=== PATIENT | male | born 1980 | race Caucasian/White ===

== ENCOUNTER 2020-08-23 15:02 | Emergency (ER) | payer BC ==
[~2020-08-23] VITALS: Ht 177.8 cm; Wt 90.6 kg
--- NOTE | 2020-08-23 15:47 | RAD ---
Exam: Chest one view INDICATION: Chest pain TECHNIQUE: Frontal view of the chest Comparisons: None FINDINGS: The cardiomediastinal silhouette and pulmonary vessels are within normal limits. The lung and pleural spaces are clear. IMPRESSION: No acute cardiopulmonary process. Electronically signed by: Vivien Garsia MD (08/23/2020 3:44 PM) [id number]
--- NOTE | 2020-08-23 15:57 | EKG ---
[address] [address] Test Date: 2020-08-23 Test Time: 15:09:41 Pat Name: HERB STALEY Department: Room: Gender: [employer] Instructor: TRACIE : 1980 Requested By: ALEXANDER RODRIGUEZ Order Number: [id number] Reading MD: Shaun Vargas Measurements Intervals [place] Rate: 70 P: 53 DC: 150 QRS: 65 QRSD: 84 T: 36 QT: 386 QTc: 420 Interpretive Statements SINUS RHYTHM NORMAL ECG RI6.02 No previous ECG available for comparison Electronically Signed On 08-24-2020 12:23:18 CDT by Shaun Vargas
[2020-08-23 16:02] LABS: AMPHETAMINE/METHAMPHETAMINE NEG (NEG); BARBITURATES NEG (NEG); BENZODIAZEPINES NEG (NEG); CANNABINOIDS NEG (NEG); COCAINE NEG (NEG); METHADONE NEG (NEG); OPIATES NEG (NEG); PHENCYCLIDINE NEG (NEG)
[2020-08-23 16:25] LABS: MAGNESIUM 2.1 mg/dL (1.8-2.4)
--- NOTE | 2020-08-23 17:11 | PHYS DOC ---
Past History Past Medical History: No Pertinent History (ALEXANDER RODRIGUEZ DO) Additional Past Surgical Histo: finger surgery (ALEXANDER RODRIGUEZ DO) Alcohol Use: Occasionally (ALEXANDER RODRIGUEZ DO) General Adult EDM: Chief Complaint: CHEST PAIN HPI: HPI: 40-year-old male who denies any significant past medical history, takes no r outine medications, presents the ED with complaints of sharp nonradiating constant chest pain on the left side of his chest with some left hand tingling, worse with deep respirations, started while at work today at 2pm. Patient states he tested no negative for COVID 2 weeks ago due to his 9-year-old daughter having a headache at her daycare-daycare refused to accept her back without a covid result. Has a grandfather with coronary artery disease but no family history of coagulopathy, connective tissue disorder, sudden , cardiac arrhythmias or aortic disease. Father from melanoma and mother from lung cancer. Patient denies any cocaine, methamphetamine or alcohol abuse. No prior history of similar symptoms. (ALEXANDER RODRIGUEZ DO) Review of Systems: Review of Systems: Constitutional: Denies fever or chills Eyes: Denies change in visual acuity HENT: Denies nasal congestion or sore throat Respiratory: Denies cough or shortness of breath or hemoptysis Cardiovascular: Denies syncope or edema GI: Denies abdominal pain, nausea, vomiting, bloody stools or diarrhea : Denies dysuria or hematuria Musculoskeletal: Denies back pain or joint pain Integument: Denies rash Neurologic: Denies headache, focal weakness or sensory changes or neck stiffness Endocrine: Denies polyuria or polydipsia Lymphatic: Denies swollen glands or diaphoresis Psychiatric: Denies depression or anxiety (ALEXANDER RODRIGUEZ DO) Heart Score: HEART Score for Chest Pain: HEART Score for Chest Pain Response (Comments) Value History Moderately Suspicious 1 ECG Normal 0 Age < 45 0 Risk Factors 1 or 2 Risk Factors 1 Troponin < Normal Limit 0 Total 2 Risk Factors: Risk Factors: DM, Current or recent (<one month) smoker, HTN, HLP, family history of CAD, obesity. Risk Scores: Score 0 - 3: 2.5% MACE over next 6 weeks - Discharge Home Score 4 - 6: 20.3% MACE over next 6 weeks - Admit for Clinical Observation Score 7 - 10: 72.7% MACE over next 6 weeks - Early Invasive Strategies (ALEXANDER SANCHEZ DO) Allergies: Allergies: Allergies Coded Allergies Type Severity Reaction Last Updated Verified No Known Drug Allergies 08/23/20 No (ALEXANDER RODRIGUEZ DO) Physical Exam: PE: Constitutional: Well developed, well nourished, no acute distress, non-toxic appearance. [] HENT: Normocephalic, atraumatic, bilateral external ears normal, oropharynx moist, no oral exudates, nose normal. [] Eyes: EOMI, conjunctiva normal, no discharge. [] Neck: Normal range of motion, supple, no stridor. [] Cardiovascular:Heart rate regular rhythm, no murmur [] Lungs & Thorax: Bilateral breath sounds clear to auscultation [] Abdomen: Bowel sounds normal, soft, no tenderness, no masses, no pulsatile masses. [] Skin: Warm, dry, no erythema, no rash. [] Back: No tenderness, no Extremities: No tenderness, no cyanosis, no clubbing, ROM intact, no edema. [] Neurologic: Alert and oriented X 3, normal motor function, normal sensory function, no focal deficits noted. [] Psychologic: Affect normal, judgement normal, mood normal. [] (MIGUEL ANGELALEXANDER DO) Current Patient Data: Labs: Laboratory Tests Test 08/23/20 15:29 08/23/20 15:30 Urine Opiates Screen Neg (NEG) Urine Methadone Screen Neg (NEG) Urine Barbiturates Neg (NEG) Urine Phencyclidine Screen Neg (NEG) Urine Amphetamine/Methamphetamine Neg (NEG) Urine Benzodiazepines Screen Neg (NEG) Urine Cocaine Screen Neg (NEG) Urine Cannabinoids Screen Neg (NEG) Urine Ethyl Alcohol Neg (NEG) D-Dimer (Yana) 0.19 mg/L (0.00-0.50) Magnesium Level 2.1 mg/dL (1.8-2.4) Creatine Kinase 222 U/L (39-308) Troponin I Quantitative < 0.017 ng/mL (0-0.055) VW-Jyj-U-Type Natriuretic Peptide 14 pg/mL (0-124) Lipase 132 U/L (73-393) Vital Signs: Vital Signs Date Time Temp Pulse Resp B/P (MAP) Pulse Ox O2 Delivery O2 Flow Rate FiO2 08/23/20 15:47 59 18 134/96 (109) 97 Room Air 08/23/20 15:03 98.6 (ALEXANDER RODRIGUEZ DO) EKG: EKG: Sinus rhythm at 70 bpm, no axis deviation, normal intervals, no T wave inversions, no ST elevations or ST depressions (ALEXANDER RODRIGUEZ DO) Radiology/Procedures: Radiology/Procedures: IMAGING REPORT Signed PATIENT: HERB STALEY ACCOUNT: [id number] : 1980 LOCATION: ER AGE: 40 SEX: M EXAM STATUS: REG ER ORD. PHYSICIAN: ALEXANDER RODRIGUEZ DO REASON: cp PROCEDURE: PORTABLE CHEST 1V Exam: Chest one view INDICATION: Chest pain TECHNIQUE: Frontal view of the chest Comparisons: None FINDINGS: The cardiomediastinal silhouette and pulmonary vessels are within normal limits. The lung and pleural spaces are clear. IMPRESSION: No acute cardiopulmonary process. Electronically signed by: Vivien Dukes MD (08/23/2020 3:44 PM) [id number] DICTATED AND SIGNED BY: VIVIEN DUKES MD DATE: 08/23/20 1544 CC: ALEXANDER RODRIGUEZ DO; MARGIE TAMAYO MD ~ Impressions: PERC rule negative (ALEXANDER RODRIGUEZ DO) Course & Med Decision Making: Course & Med Decision Making Pertinent Labs and Imaging studies reviewed. (See chart for details) Concern for atypical, reproducible, chest pain. Initial troponin and d-dimer are within normal limits. Patient with PERC rule negative. Chest x-ray showed no acute infiltrate. Patient low risk for Mace. Patient with no fever, tachyc ardia and blood pressure within upper limits of normal-normal renal function. Patient is pending repeat troponin. Due to shift change patient was signed out to oncoming physician Dr. Hernadnez. (ALEXANDER RODRIGUEZ DO) Course & Med Decision Making The patient second troponin was normal. There was no change at all. This does not appear to be cardiopulmonary in nature. The patient feels good at this time. He is stable for discharge at this time. (REMEDIOS HERNANDEZ DO) Dragon Disclaimer: Dragon Disclaimer: This electronic medical record was generated, in whole or in part, using a voice recognition dictation system. (ALEXANDER RODRIGUEZ DO) Departure Departure: Impression: Primary Impression: Chest pain Disposition: 01 HOME/RESIDENCE PRIOR TO ADM Condition: STABLE Referrals: MARGIE TAMAYO MD (PCP) Patient Instructions: Chest Pain (Nonspecific), [id number] Justification of Admission: Justification of Admission: Justification of Admission Dx: N/A (ALEXANDER RODRIGUEZ DO) ALEXANDER RODRIGUEZ DO Aug 23, 2020 17:11 REMEDIOS HERNANDEZ DO Aug 23, 2020 22:18
[2020-08-23] MEDS ORDERED: KETOROLAC 15 MG/ML VIAL. IVP ONE (17:15)
[2020-08-23 17:45] LABS: BASO % 0 % (0-3); EOS # 0.2 x10^3/uL (0.0-0.7); EOS % 2 % (0-3); HEMATOCRIT 45.5 % (39.0-53.0); HEMOGLOBIN 15.5 g/dL (13.0-17.5); LYMPH % 25 % (24-48); MEAN CORPUSCULAR HEMOGLOBIN 32 pg (25-35); MEAN CORPUSCULAR HGB CONC 34 g/dL (31-37); MEAN CORPUSCULAR VOLUME 92 fL (79-100); MONO # 0.6 x10^3/uL (0.0-1.1); MONO % 7 % (0-9); NEUT # 5.4 x10^3uL (1.8-7.7); NEUT % 66 % (31-73); PLATELET COUNT 271 x10^3/uL (140-400); RED BLOOD COUNT 4.94 x10^6/uL (4.30-5.70); RED CELL DISTRIBUTION WIDTH 12.6 % (11.5-14.5); WHITE BLOOD COUNT 8.2 x10^3/uL (4.0-11.0)
[2020-08-23 17:50] LABS: CALCIUM 9.3 mg/dL (8.5-10.1); CREATININE 1.3 mg/dL (0.7-1.3); GFR 60.5; POTASSIUM 3.8 mmol/L (3.5-5.1)
[2020-08-23 17:58] LABS: ALBUMIN/GLOBULIN RATIO 1.1 (1.0-1.7); TOTAL BILIRUBIN 0.4 mg/dL (0.2-1.0); TOTAL PROTEIN 7.8 g/dL (6.4-8.2)
[2020-08-23 22:05] VITALS: BP 148/102
== END 2020-08-23 22:25 | disposition home or self-care (01) ==
LOC: ER 15:02
DX: R07.89 Other chest pain (principal); R20.2 Paresthesia of skin
CPT/HCPCS: 36415; 71045; 80053; 80307; 82550; 83690; 83735; 83880; 84484; 85025; 85379; 93005; 96374; 99285; J1885

== ENCOUNTER → 2021-12-30 | Outpatient (CLI) | payer BC ==
--- NOTE | 2021-12-30 14:41 | RAD ---
Three-view right hand and three-view right wrist dated 12/30/2021. COMPARISON: None. INDICATION: Pain after fall. FINDINGS: 3 views the right wrist show normal bony alignment. No displaced fracture. No periostitis or bone britt truction. No acute osseous or articular abnormality. 3 views of the right hand show normal bony alignment. No displaced fracture. No erosive changes or janet ne destruction. No apparent acute osseous or articular abnormality. IMPRESSION: No acute radiographic abnormality. Electronically signed by: Shimon Vick MD (12/30/2021 2:38 PM) [id number]
== END ==
LOC: PMG 14:20
PROVIDERS: ATTEND Nurse Practitioner Family
DX: M79.641 Pain in right hand (principal)
CPT/HCPCS: 73110; 73130